=== PATIENT | female | born 1945 | race Asian ===

== ENCOUNTER 2019-03-28 12:45 | Inpatient (IN) | payer OTHER ==
[~2019-03-28] VITALS: Ht 160 cm; Wt 67.2 kg
[~2019-03-28 12:45] MED LIST: ALPR0.5O4 PO; ASPI-1718 PO; ATEN50TA8 PO; CHOL200072 PO; LISI-420 PO; MECL-272 PO; SIMV20TA1 PO; SIMV40TA1 PO
[2019-03-28 12:50] VITALS: BP 138/99
--- NOTE | 2019-03-28 12:57 | NUR ---
BS 106
--- NOTE | 2019-03-28 13:38 | NUR ---
PT STATES SHE ALREADY USED THE RESTROOM AND CANT GO RIGHT NOW CARI WESTBROOK TRANSLATED
--- NOTE | 2019-03-28 13:46 | NUR ---
PT AMB TO RESTROOM WITH STEADY GAIT
--- NOTE | 2019-03-28 13:59 | NUR ---
MICHELLE CORTEZ. PER EMS, PT HAS HAD MULTIPLE BEHAVIORAL INCIDENTS AT HOME. FAMILY HAS BEEN ATTEMPTING TO PLACE PT IN A HOME AND NEEDS MEDICAL CLEARANCE. PT CONTINUES TO WANDER FROM ROOM. VSS. PT AWAKE AND AMBULATORY. DR MINA HAS ALREADY SEEN PT. PMH- ALZHEIMERS AND DEMENTIA MANDARIAN SPEAKING ONLY
--- NOTE | 2019-03-28 14:10 | NUR ---
PT CONTINUES TO WANDER FROM ROOM, PT ESCORTED BACK INTO ROOM
[2019-03-28 14:28] LABS: BASOPHILS % (AUTO) 0.6 % (0.0-2.0); EOSINOPHILS # (AUTO) 0.1 K/uL (0-0.4); EOSINOPHILS % (AUTO) 2.5 % (0.0-4.0); HEMATOCRIT 36.2 % (36-48); HEMOGLOBIN 11.9 g/dL (12.0-16.0); LYMPHOCYTES % (AUTO) 39.4 % (20.5-51.1); MEAN CORPUSCULAR HEMOGLOBIN 31 pg (27-31); MEAN CORPUSCULAR HGB CONC 33 g/dL (33-37); MEAN CORPUSCULAR VOLUME 93.3 fL (80-94); MONOCYTES # (AUTO) 0.5 K/uL (0.8-1.0); MONOCYTES % (AUTO) 10.4 % (1.7-9.3); NEUTROPHILS # (AUTO) 2.4 K/uL (1.8-7.7); NEUTROPHILS % (AUTO) 47.1 % (42.2-75.2); PLATELET COUNT (AUTO) 288 K/uL (140-450); RED BLOOD CELL COUNT(AUTO) 3.88 MIL/uL (4.20-5.40); RED CELL DISTRIBUTION WIDTH 13.1 % (11.6-13.7); WHITE BLOOD COUNT (AUTO) 5.1 K/uL (4.8-10.8)
[2019-03-28] MEDS ORDERED: LORazepam 2 MG/ML VIAL IM ONE (14:30)
[2019-03-28 14:49] LABS: ALBUMIN 3.6 g/dL (3.4-5.0); ANION GAP 12.5 (8-16); ASPARTATE AMINOTRANSFERASE 29 U/L (15-37); CHLORIDE 103 mmol/L (98-107); CREATININE 0.8 mg/dL (0.6-1.3); GLUCOSE 96 mg/dL (74-106); POTASSIUM 3.5 mmol/L (3.5-5.1); SODIUM SERUM 139 mmol/L (136-145); TOTAL BILIRUBIN 0.7 mg/dL (0.0-1.0); UREA NITROGEN, BLOOD 15 mg/dL (7-18)
[2019-03-28 14:50] LABS: ACETAMINOPHEN < 0.5 ug/ml (10-30); SALICYLATE < 2.8 mg/dL (2.8-20.0)
[2019-03-28 14:51] LABS: BARBITURATE, URINE NEG. ng/ml (NEG <=200); BENZODIAZEPINE, URINE POS. ng/mL (NEG <=200); CANNABINOID, URINE NEG. ng/mL (NEG <=50); COCAINE, URINE NEG. ng/mL (NEG <=300); OPIATE, URINE NEG. ng/mL (NEG <=2000); PHENCYCLIDINE SCREEN,URINE NEG. ng/mL (NEG <=25)
[2019-03-28] MEDS ORDERED: diphenhydrAMINE 50 MG/ML VIAL IM ONE (15:05)
[2019-03-28] MEDS ORDERED: NACL 0.9% 1,000 ML IV ONE (15:05)
[2019-03-28] MEDS ORDERED: HALOPERIDOL IM 5 MG/ML VIAL IM ONE (15:05)
--- NOTE | 2019-03-28 15:32 | NUR ---
HALDOL, BENADRYL ADMINISTERED IM, WILL START IV AND ADMINISTER FLUIDS ONCE PT IS CALM
--- NOTE | 2019-03-28 15:50 | NUR ---
UNABLE TO INSERT IV. PT CONTINUES TO MOVE. WILL NOT HOLD ARM STILL
--- NOTE | 2019-03-28 15:57 | NUR ---
PT CONTINUES TO MOVE ARM DURING BP. BP NOT TAKEN DOCUMENTED PTS HR, RR, AND 02
--- NOTE | 2019-03-28 16:31 | NUR ---
IV INSERTED IN PTS L AC, NS STARTED 100 MLS/HR
[2019-03-28] MEDS ORDERED: LORazepam 2 MG/ML VIAL IVP PRN ×2 (16:50→17:00)
[2019-03-28] MEDS ORDERED: DOCUSATE SODIUM 250 MG GELCAP PO PRN (17:00)
[2019-03-28] MEDS ORDERED: BISACODYL 10 MG SUPP RC PRN (17:00)
[2019-03-28] MEDS ORDERED: ALUMINUM HYD/MAG/SIMETHICONE 30 ML UDC PO PRN (17:00)
[2019-03-28] MEDS ORDERED: HYDROcodone/APAP 5/325 MG 1 TAB TAB PO PRN ×2 (17:00)
[2019-03-28] MEDS ORDERED: MAG SULF 2000 MG/WATER PREMIX 50 ML IV PRN (17:00)
[2019-03-28] MEDS ORDERED: SODIUM PHOSPHATE 118 ML ENEM RC PRN (17:00)
[2019-03-28] MEDS ORDERED: MAGNESIUM OXIDE 400 MG TAB PO PRN (17:00)
[2019-03-28] MEDS ORDERED: IPRATROPIUM 0.02% 0.5 MG/2.5 ML NEBU INH PRN (17:00)
[2019-03-28] MEDS ORDERED: ALBUTEROL 0.083% 2.5 MG/3 ML NEBU INH PRN (17:00)
[2019-03-28] MEDS ORDERED: ONDANSETRON 4 MG/2 ML VIAL IVP PRN (17:00)
[2019-03-28] MEDS ORDERED: MORPHINE SULFATE 2 MG/ML SYR IVP PRN (17:00)
[2019-03-28] MEDS ORDERED: POTASSIUM CHLORIDE 10 MEQ TABER PO PRN (17:00)
[2019-03-28] MEDS ORDERED: diphenhydrAMINE 50 MG/ML VIAL IVP PRN (17:00)
[2019-03-28] MEDS ORDERED: cloNIDine 0.1 MG TAB PO PRN (17:00)
[2019-03-28] MEDS ORDERED: ACETAMINOPHEN 325 MG TAB PO PRN (17:00)
[2019-03-28] MEDS ORDERED: guaiFENesin DM 200/20 MG-10 ML 10 ML UDC PO PRN (17:00)
[2019-03-28] MEDS ORDERED: ACETAMINOPHEN 650 MG SUPP RC PRN (17:00)
--- NOTE | 2019-03-28 18:00 | NUR ---
PT BITING AT IV TUBING, IV TUBING REPLACED.
--- NOTE | 2019-03-28 18:14 | NUR ---
BP 169/104, DR MINA NOTIFIED
--- NOTE | 2019-03-28 18:15 | NUR ---
SOFT RESTRAINTS APPLIED TO UPPER WRISTS AND LOWER ANKLES
--- NOTE | 2019-03-28 18:30 | NUR ---
UNABLE TO ASSESS BP, PT CONTINUES TO MOVE ARM
--- NOTE | 2019-03-28 18:45 | NUR ---
Patient will be admitted to care of [facility]. Admited to [facility]. Will go to room 110B. Belongings list completed. Report to SHANTA RIZO. PT IN RESTAINTS UPON ADMIT NS RUNNING AT 100MLS/HR, APPROX 900 ML LEFT
--- NOTE | 2019-03-28 19:10 | NUR ---
RECEIVED REPORT FORM ERNESTO RIZO DAYSHIFT NURSE AT BEDSIDE. PT RECENTLY ARRIVED TO FLOOR VIA GURNEY AND WAS ABLE TO AMBULATE WITH ASSISTANCE TO BED B OF ROOM 110. PT IS AOX1 AND SPEAKS MANDARIN ONLY. PT FAMILY AT BEDSIDE AND ASSISTING WITH ADMISSION QUESTIONS. FAMILY SAID THEY REASON THEY HAVE HER HERE IS DUE TO HER DEMENTIA BEHAVIORS CAUSING PT TO LEAVE THE HOUSE AND REFUSE TO COME BACK HOME POLICE WAS CALLED AND PT ARRIVE BIBA TO KEEP PT SAFE AND FOR PT TO HAVE PLACEMENT IN APPROPRIATE FACILITY. MRSA SWAB DONE PT HAS RESTRAINTS AT BEDSIDE BUT PT IS QUIET WITH NO BEHAVIORS CURRENTLY. PT PLACED ON FALLS PRECAUTIONS AND HAS 1 :1 SITTER AT BEDSIDE.
[2019-03-28 19:15] VITALS: BP 178/89
--- NOTE | 2019-03-28 20:00 | NUR ---
PT IN BED SLEEPING BUT AROUSABLE TO NAME, PT SPEAKS ONLY MANDARIN BUT DOES UNDERSTAND SOME SINHALA. PT WAS ESCORTED TO THE TOILET. SHE IS CONTINENT AND ABLE TO LET STAFF KNOW SHE IS THIRSTY AND HAS TO USE TOILET. PT NOT IN RESTRAINTS ATT HIS TIME. V/S FOLLOWS T 97.6 P 60 R 18 B/P 152/88 02 95% ON ROOM AIR. PT HAS IV SITE 22G ON RIGHT F/A INTACT AND RUNNING N/S AT 100MLS/HR.
--- NOTE | 2019-03-28 20:06 | NUR ---
RECEIVED PATIENT ON ROOM AIR, PULSE OX SAT 95%. NO SOB NOTED. PRN BREATHING TREATMENT NOT INDICATED AT THIS TIME. NO ACUTE RESPIRATORY DISTRESS NOTED AT THIS TIME. WILL CONTINUE TO MONITOR.
--- NOTE | 2019-03-28 22:00 | NUR ---
PT AWAKE AND SPEAKING MANDARIN AT BEDSIDE. TO SITTER. PT TRYING TO GET PUT OF BED BY HERSELF, STAFF CAME AND ASSISTED PT TO TOILET AND GAVE HER A DRINK AND SNACK, PT WENT BACK TO BED. ALL FALLS PRECAUTIONS IN PLACE AND 1:1 SITTER AT BEDSIDE.
[2019-03-28] MEDS: MECLIZINE 25 MG TAB PO SCH (22:06)
[2019-03-28] MEDS: SIMVASTATIN 20 MG TAB PO SCH (22:07)
[2019-03-28] MEDS ORDERED: hydrALAZINE 20 MG/ML VIAL IVP PRN (22:15)
[2019-03-29] VITALS: BP 141/98
--- NOTE | 2019-03-29 | NUR ---
PT IN BED SLEEPING BUT AROUSABLE TO TOUCH. NO BEHAVIORS NOTED V/S FOLLOWS T 98.2 P 57 R 18 B/P 141/98 02 95% ON ROOM AIR. ALL FALLS PRECAUTIONS IN PLACE AND 1:1 SITTER AT BEDSIDE.
--- NOTE | 2019-03-29 02:40 | NUR ---
PT WAS ESCORTED TO THE TOILET AND GIVING A SNACK AND DRINK . PT CONTINUE TO YELL OUT IN MANDARIN AND SEEMED TO BE MORE AGITATED. PT PLACED ON RESTRAINTS AT BEDSIDE WITH ALL FALLS AND 1: 1 SITTER AT BEDSIDE.
--- NOTE | 2019-03-29 04:45 | NUR ---
PT YELLING AND CRYING AT BEDSIDE, ATIVAN NOT EFFECTIVE FOR PT AGITATION. PT GIVEN MORPHINE FOR 7/10 GENERALIZED PAIN. ALL FALLS PRECAUTIONS AND 1:1 SITTER AT BEDSIDE. IV SITE INTACT AND RUNNING NS ORDERED.
--- NOTE | 2019-03-29 07:30 | NUR ---
RECEIVED BEDSIDE REPORT FROM BOLTING MACHINE OPERATOR NURSE FOR CONTINUITY OF CARE. PATIENT IS AWAKE AND LAYING FLAT ON BED. PATIENT IS TALKING TO HERSELF IN [place]. RESPIRATION EVEN AND UNLABORED ON RA. NO SIGNS OF DISTRESS NOTED. PATIENT REFUSED TO ESTABLISH IV AND EDUCATION PROVIDED AND PATIENT INSISTED OF NOT WANTING IT AND SAID " NO, DON'T TOUCH ME" IN [place] R[place]. BILATERAL SOFT WRISTS RESTRAINTS IN PLACE, ASSESSED AND NO INJURY AND CAPILLARY REFILLED < 3 SECONDS. SKIN INTACT AND DRY. PATIENT IS CONTINENT AND ABLE TO AMBULATE WITH MINIMAL ASSIST. DISCUSSED PLAN OF CARE WITH PATIENT AND REINFORCEMENT NEEDED. SAFETY MEASURES IN PLACE. BED IN LOW POSITION AND CALL LIGHT WITHIN REACH. SITTER BY BEDSIDE.
--- NOTE | 2019-03-29 07:50 | NUR ---
DAUGHTER BERTA ROBLEDO BY BEDSIDE AND TALKING TO PATIENT. NO SIGNS OF DISTRESS NOTED. SAFETY MEASURES IN PLACE.
--- NOTE | 2019-03-29 07:52 | NUR ---
RELEASED PATIENT FROM RESTRAINTS, AND ASSESSED NO INJURY AND CAPILLARY REFILLED < 3 SECONDS. PATIENT SITS UP ON CHAIR BY THE DOOR AND KEEP ON SAYING IN KOREAN " MY OLDER SISTER IS IN UNIT 1 FLOOR 1. I NEED TO GO PICK HER UP." REORIENTED PATIENT THAT SHE IS IN THE HOSPITAL AND HER OLDER SISTER IS NOT AROUND HERE. PATIENT SAID "NO, I MUST GO NOW." NO SIGNS OF DISTRESS NOTED. SITTER IS WITH PATIENT.
[2019-03-29 08:00] VITALS: BP 155/104
--- NOTE | 2019-03-29 08:14 | NUR ---
PATIENT HAS BEEN SCREENED AND CATEGORIZED MODERATE NUTRITION RISK. PATIENT WILL BE SEEN WITHIN 3-5 DAYS OF ADMISSION. 03/31/19 04/02/[address]
[2019-03-29] MEDS: LISINOPRIL 20 MG TAB PO SCH (08:40)
[2019-03-29] MEDS: ATENOLOL 50 MG TAB PO SCH (08:41)
[2019-03-29] MEDS: ASPIRIN 81 MG TAB.CHEW PO SCH (08:41)
--- NOTE | 2019-03-29 08:41 | NUR ---
ADMINISTERED SCHEDULED MEDS PER MD ORDER, PATIENT TOLERATED WELL. MEDS EDUCATION PROVIDED TO PATIENT AND REINFORCEMENT NEEDED. ATTEMPTED TO ESTABLISH IV ACCESS, BUT PATIENT REFUSED AND PUSH MY HANDS AWAY AND SAID "NO, I DON'T NEED NEEDLE. DON'T TOUCH ME." EXPLAINED TO PATIENT THAT IV IS NEEDED DURING THE STAY IN THE HOSPITAL FOR EMERGENCY PURPOSE AND PATIENT INSISTED NOT WANTING IT. PATIENT IS SITTING UP ON CHAIR AND WEARING HER PURSE AND ATTEMPTED TO LEAVE HER ROOM TO TAKE THE TRAIN. REORIENTED PATIENT THAT SHE IS IN HOSPITAL AND NO TRAIN AROUND HERE. SITTER IS WITH PATIENT. NO SIGNS OF DISTRESS NOTED. SAFETY MEASURES IN PLACE.
--- NOTE | 2019-03-29 09:50 | NUR ---
PATIENT IS AWAKE AND SITTING ON CHAIR BY DOOR. PATIENT IS SAYING IN DUTCH"I NEED TO GO GET THE TRAIN NOW, THE [place]ED[place]ING IS LATE. LET ME GET OUT OF THE ROOM." REORIENTED PATIENT THAT SHE IS IN THE HOSPITAL AND I AM GOING TO START IV ON HER AND SHE REFUSED AND PUSHING MY HANDS AWAY. UNABLE TO START IV. NO SIGNS OF DISTRESS NOTED. SAFETY MEASURE IN PLACE. SITTER BY PATIENT' SIDE.
--- NOTE | 2019-03-29 11:10 | NUR ---
PATIENT INSISTED TO GET OUT OF HER ROOM AND FORCED HER WAY OUT DESPITE WITH SITTER. AMBULATED WITH PATIENT TO THE DAMIAN FOR 3 MINS. WAS ABLE TO CONVINCED PATIENT TO SIT DOWN ON WHEELCHAIR. ASSISTED PATIENT TO SIT DOWN ON WHEELCHAIR AND PUT ON SEAT BELT. WHEELCHAIR PATIENT BACK TO HER ROOM. PATIENT IS SITTING UP ON WHEELCHAIR AND SAYING "I NEED TO GO NOW. NO ONE IS TAKING CARE OF THE CHILDREN, THEY WILL BE HUNGRY. I NEED TO GO HOME TO PROJECT COORDINATOR RN." REORIENTED PATIENT THAT SHE IS IN THE HOSPITAL AND NOW IT'S MORNING. PATIENT IS SITTING ON WHEELCHAIR AND TALKING TO HERSELF. SAFETY MEASURES IN PLACE. SITTER BY PATIENT' SIDE.
--- NOTE | 2019-03-29 11:25 | NUR ---
INFORMED DR HOSKINS THAT PATIENT PULLED OUT HER IV AND REFUSED TO START A NEW IV ACCESS, DR HOSKINS WAS AWARE AND STATED "OK TO CHANGE ATIVAN TO PO 2 MG." REBACK AND CONFIRMED WITH DR HOSKINS. Addendum: 03/29/19 at 1138 by Kylee Piedra RN 0.5 MG PO Q4 FOR AGITATION
[2019-03-29] MEDS: LORazepam 0.5 MG TAB PO PRN ×2 (12:09→19:40)
--- NOTE | 2019-03-29 12:09 | NUR ---
PATIENT IS AGITATED AND PUSHING THE SITTER AND MANAGED TO GET OFF FROM WHEELCHAIR AND GET OUT OF HER ROOM. PATIENT STATED IN TAMAZIGHT "THE TRAIN IN HERE, I HEARD IT. I NEED TO GO HOME TO GREET THE GUESTS." REORIENTED PATIENT AND PATIENT INSISTED OF WALKING OUT. CONVINCED PATIENT TO GO BACK HER ROOM TO WAIT IN HER ROOM FOR LUNCH, ADMINISTERED ATIVAN PO PER MD ORDER, PATIENT SWALLOWED WELL. PATIENT IS SITTING DOWN ON THE CHAIR AT THIS TIME AND KEEP SAYING IN TAMAZIGHT " OK, OK, I AM BUSY AT HOME AND I NEED TO TAKE CARER OF MY BUSINESS." REORIENTED PATIENT THAT SHE IS IN THE HOSPITAL AND FOR HER SAFETY DO NOT GET OUT OF HER ROOM AND DO NOT WANDER AROUND BY HERSELF. SAFETY MEASURES IN PLACE. SITTER BY PATIENT' SIDE.
--- NOTE | 2019-03-29 13:40 | NUR ---
PATIENT IS AWAKE AND WANDERING AROUND IN HER ROOM AND FOLDING BLANKET. NO SIGNS OF DISTRESS NOTED. SAFETY MEASURES IN PLACE. SITTER BY BEDSIDE.
--- NOTE | 2019-03-29 14:27 | NUR ---
Type Proof Reproducer Note: José Cheng from [facility] , [address], [address] [place] [address] came to hospital to meet with patient and to obtain an update on patient's discharge plan. I informed him I have contacted [facility] facilities and told him patient's daughter Arlette is able to pay up to $1,100 for patient's placement if [facility] facility placement is not an option. Per José, patient's IHSS application was denied. He stated he will try to assist patient with completing another IHSS application.
--- NOTE | 2019-03-29 14:34 | NUR ---
LUIS MCGILL FROM [facility] CAME TO SEE THE PATIENT AND LEFT HIS CARD, PUT IT IN THE CHART.
--- NOTE | 2019-03-29 14:46 | NUR ---
Engineering Manager Note: Per Chrissy from [facility] , they cannot accept patient due to behavior and stated they do not have any beds available in their locked unit. Per Arpita from [facility] , they do not have any beds available in their locked unit at this time. Per Joey from [facility] , they do not have any beds available in their locked unit at this time. Per Lucy from [facility] , they do not have any female beds at this time. Pending response from Bhargavi at [facility]
--- NOTE | 2019-03-29 14:50 | NUR ---
PATIENT IS SLEEPY AND TALK WITH HER EYES CLOSED. ASKED PATIENT TO TAKE NAP ON BED AND PATIENT REFUSED. PATIENT IS WANDERING AROUND IN THE ROOM AND TURN ON THE WATER FACET. ORIENTED PATIENT AND ASKED PATIENT TO SIT DOWN TO REST ON THE CHAIR. PATIENT SIT ON THE CHAIR WITH HER EYES CLOSED AND SAYING"I NEED TO START COOKING NOW. THE CHILDREN ARE GOING TO [place]" REORIENTED PATIENT THAT SHE IS IN THE HOSPITAL AND THERE IS NO CHILD AROUND. NO SIGNS OF DISTRESS NOTED. SAFETY MEASURES IN PLACE. 1:1 SITTER BY PATIENT'S SIDE.
--- NOTE | 2019-03-29 15:18 | NUR ---
CONTACTED PATIENT'S PCP MELCHOR GARCIA'S OFFICE AT [phone] REGARDING POST DISCHARGE VISIT. APPOINTMENT SCHEDULED FOR [phone]. COPY OF APPOINTMENT PROVIDED TO THE PATIENT.
--- NOTE | 2019-03-29 15:21 | NUR ---
ASSISTED PATIENT TO GET ON BED AND TAKE NAP. NO SIGNS OF DISTRESS NOTED. SAFETY MEASURES IN PLACE. BED IN LOW POSITION AND CALL LIGHT WITHIN REACH. SITTER BY BEDSIDE.
[2019-03-29 16:00] VITALS: BP 147/91
--- NOTE | 2019-03-29 16:43 | NUR ---
Disaster Recovery Consultant Note: Per Faheem from [facility] , they do not have any beds available in their locked unit at this time. Addendum: 03/29/19 at 1645 by Nancie LOOMIS Carri john MD's snf order to [facility], fax number Addendum: 03/29/19 at 1649 by Nancie LOOMIS Per Tanya from [facility] , they do not have any beds available at this time.
--- NOTE | 2019-03-29 16:45 | NUR ---
PATIENT AWAKE AND WANDERING AROUND HIS THE ROOM AND STATES IN HONG KONGER "OH, I AM SLEEPY. I HAD A NIGHTMARE LAST NIGHT. I WILL GO TO BED EARLY." ASSISTED PATIENT TO GET ON BED FOR REST, PATIENT REFUSED AND INSISTED TO SIT DOWN ON CHAIR BY THE DOOR. PATIENT IS SITTING DOWN ON THE CHAIR AND TALKING IN [place]. NO SIGNS OF DISTRESS NOTED. SAFETY MEASURES IN PLACE. SITTER BY PATIENT' SIDE.
--- NOTE | 2019-03-29 17:26 | NUR ---
PATIENT IS SLEEPING COMFORTABLY ON BED AT THIS TIME. EVEN AND UNLABORED CHEST RISES ON RA NOTED. FLACC 0. NO SIGNS OF DISTRESS NOTED. SAFETY MEASURES IN PLACE. BED IN LOW POSITION AND CALL LIGHT WITHIN REACH. SITTER BY BEDSIDE.
--- NOTE | 2019-03-29 17:42 | NUR ---
PATIENT AWAKE ANG GOT OUT OF YAMIL. PATIENT IS SITTING UP ON A CHAIR BY THE DOOR. PATIENT IS TALKING IN LATVIAN. NO SIGNS OF DISTRESS NOTED. SAFETY MEASURES IN PLACE. SITTER BY PATIENT' SIDE.
--- NOTE | 2019-03-29 18:50 | NUR ---
PATIENT AWAKE AND SITTING ON EDGE OF BED. NO SIGNS OF DISTRESS NOTED. SAFETY MEASURES IN PLACE. SITTER BY BEDSIDE.
--- NOTE | 2019-03-29 19:15 | NUR ---
PATIENT MANAGED TO WALK OUT OF HER DESPITE SITTER BY BEDSIDE. PATIENT WAS SAYING IN ARMENIAN "I AM GOING TO DIGITAL PUBLISHING SPECIALIST MY MOTHER FROM THE HOSPITAL. DON'T STOP ME." REORIENTED PATIENT AND WAS ABLE TO CONVINCED PATIENT TO SIT ON WHEELCHAIR. APPLIED SEAT BELT AND WHEELCHAIRED PATIENT BACK TO HER ROOM. NO SIGNS OF DISTRESS NOTED. SAFETY MEASURES IN PLACE. SITTER BY PATIENT' SIDE.
--- NOTE | 2019-03-29 19:24 | NUR ---
ENDORSED PATIENT AT BEDSIDE TO COPY READER NURSE FOR CONTINUITY OF CARE. PATIENT AWAKE AND SITTING ON THE WHEELCHAIR. PATIENT IS TALKING IN ROMANIAN "I NEED TO GO HOME TO TAKE CARE OF MY FATHER. HE IS 80 YEARS OLD." REORIENTED PATIENT THAT SHE IS IN THE HOSPITAL. NO SIGNS OF DISTRESS NOTED. PATIENT IS IN STABLE CONDITION. SAFETY MEASURES IN PLACE. SITTER BY PATIENT' SIDE.
--- NOTE | 2019-03-29 19:25 | NUR ---
REPORT RECEIVED FROM AM NURSE AT BEDSIDE. PT IN STABLE CONDITION. AAOX1. INTRODUCED SELF TO PT. BOARD UPDATED. NO COMPLAINTS OF PAIN. NO SOB. AFEBRILE. PT IS AMBULATORY. PT HAS DEMENTIA AND IS VERY CONFUSED. PT IS NON COMPLIANT AND WALKS AROUND THE UNIT. PT NO LONGER HAS AN IV SITE. SHE PULLED IT OUT DURING AM SHIFT. SKIN WARM, DRY, AND INTACT WITH NO OPEN WOUNDS. BED LOCKED IN LOW POSITION. CALL QUINTERO WITHIN REACH. SAFETY PRECAUTION IN PLACE. ALL NEEDS MET AT THIS TIME.
--- NOTE | 2019-03-29 19:40 | NUR ---
ATIVAN GIVEN PO. PT TOLERATED WELL.
[2019-03-29] MEDS: SIMVASTATIN 20 MG TAB PO SCH (20:01)
[2019-03-29] MEDS: MECLIZINE 25 MG TAB PO SCH (20:01)
--- NOTE | 2019-03-29 20:01 | NUR ---
ANTIVERT AND ZOCOR GIVEN PO. PT TOLERATED WELL.
--- NOTE | 2019-03-29 20:30 | NUR ---
PT NON COMPLIANT WALKING AROUND THE UNIT. PT DOES NOT LISTEN WHEN ASKED TO GO BACK TO HER ROOM OR GO TO BED AFTER ATIVAN HAS BEEN GIVEN. PT IS A FALL RISK. WILL PUT PATIENT ON WHEELCHAIR AND WHEEL HER AROUND.
--- NOTE | 2019-03-29 20:57 | NUR ---
RECEIVED PATIENT ON ROOM AIR, PULSE OX SAT 94%. NO SOB NOTED. PRN BREATHING TREATMENT NOT INDICATED AT THIS TIME. NO ACUTE RESPIRATORY DISTRESS NOTED. WILL CONTINUE TO MONITOR.
--- NOTE | 2019-03-29 21:00 | NUR ---
PT CONSTANTLY GETTING UP AND WILL NOT SLEEP. WALKING AROUND THE UNIT.
--- NOTE | 2019-03-29 21:30 | NUR ---
PT STILL UP AND ALERT. TRYING TO GET HER TO SLEEP DUE TO PATIENT GETTING DROWSY.
--- NOTE | 2019-03-29 21:55 | NUR ---
PT FINALLY LAYING IN BED. NO S/S OF DISTRESS NOTED. WILL CONTINUE TO MONITOR.
--- NOTE | 2019-03-29 23:30 | NUR ---
PT SLEEPING COMFORTABLY BUT AROUSABLE. NO S/S OF DISTRESS NOTED. WILL CONTINUE TO MONITOR.
[2019-03-30] VITALS: BP 146/109
--- NOTE | 2019-03-30 02:00 | NUR ---
PT SLEEPING COMFORTABLY BUT AROUSABLE. NO S/S OF DISTRESS NOTED. RESPIRATIONS EVEN, UNLABORED, AND WNL. WILL CONTINUE TO MONITOR.
--- NOTE | 2019-03-30 03:25 | NUR ---
PT SLEEPING COMFORTABLY BUT AROUSABLE. NO S/S OF DISTRESS NOTED. WILL CONTINUE TO MONITOR.
--- NOTE | 2019-03-30 07:15 | NUR ---
RECEIVED BEDSIDE REPORT FROM CIRCUIT DESIGN ENGINEER NURSE FOR CONTINUITY OF CARE. PATIENT IS SLEEPING COMFORTABLY ON BED AT THIS TIME AND AROUSABLE TO VOICE. RESPIRATION EVEN AND UNLABORED ON RA. FLACC 0. NO SIGNS OF DISTRESS NOTED. NO IV SITE ESTABLISHED. SKIN INTACT AND DRY. PATIENT IS CONTINENT AND ABLE TO AMBULATE WITH STANDBY ASSIST. SAFETY MEASURES IN PLACE. BED IN LOW POSITION AND CALL LIGHT WITHIN REACH. SITTER BY BEDSIDE.
[2019-03-30 08:00] VITALS: BP 170/111
[2019-03-30] MEDS: ATENOLOL 50 MG TAB PO SCH (08:13)
[2019-03-30] MEDS: ASPIRIN 81 MG TAB.CHEW PO SCH (08:13)
--- NOTE | 2019-03-30 08:13 | NUR ---
CHECKED VITAL SIGNS AND PATIENT'S BP IS 170/111, ADMINISTERED AM BP MEDS PER MD ORDER, PATIENT TOLERATED WELL. MED EDUCATION PROVIDED TO PATIENT AND REINFORCEMENT NEEDED. PATIENT AWAKE AND SITTING UP ON EDGE OF BED AT THIS TIME. PATIENT IS TALKING IN CITIZEN OF [place] "I NEED TO COOK FOR THE CHILDREN FOR DINNER. I AM GOING TO TAKE THE TRAIN HOME." REORINTED PATIENT THAT SHE IS IN THE HOSPITAL AND NO TRAIN AROUND HER. NO SIGNS OF DISTRESS NOTED. SAFETY MEASURES IN PLACE. BED IN LOW POSITION AND CALL LIGHT WITHIN REACH. SITTER BY BEDSIDE.
[2019-03-30] MEDS: LISINOPRIL 20 MG TAB PO SCH (08:14)
--- NOTE | 2019-03-30 09:29 | NUR ---
RECHECK PATIENT'S BP AND RECEIVED 147/80 PULSE 68. PATIENT IS AWAKE AND RESTING ON BED AT THIS TIME. NO SIGNS OF DISTRESS NOTED. SAFETY MEASURES IN PLACE. BED IN LOW POSITION AND CALL LIGHT WITHIN REACH. SITTER BY BEDSIDE.
[2019-03-30] MEDS ORDERED: amLODIPine 5 MG TAB PO SCH (10:00)
--- NOTE | 2019-03-30 10:15 | NUR ---
ADMINISTERED MED PER MD ORDER, PATIENT TOLERATED WELL. PATIENT AWAKE AND SITTING UP ON CHAIR. NO SIGNS OF DISTRESS NOTED. SAFETY MEASURES IN PLACE. SITTER BY BEDSIDE.
--- NOTE | 2019-03-30 10:48 | NUR ---
PATIENT REFUSED TO SIT DOWN INSIDE OF HER ROOM AND REQUESTED TO SIT DOWN ON THE HALLWAY. MOVED THE CHAIR FROM THE PATIENT AND ASSISTED PATIENT TO SIT DOWN ON THE CHAIR BY THE HALLWAY. PATIENT PUT ON HER SUNGLASSES AND SIT DOWN ON THE CHAIR. NO SIGNS OF DISTRESS NOTED. SAFETY MEASURES IN PLACE. SITTER BY PATIENT' SIDE.
--- NOTE | 2019-03-30 11:47 | NUR ---
PATIENT AWAKE AND SITTING UP ON CHAIR BY HER ROOM IN THE DAMIAN WAY. NO SIGNS OF DISTRESS NOTED. SAFETY MEASURES IN PLACE. SITTER BY BEDSIDE.
--- NOTE | 2019-03-30 13:15 | NUR ---
PATIENT IS AWAKE AND SITTING UP ON CHAIR ON THE DAMIAN WAY. PATIENT REFUSED TO START IV AND SAYING IN GREENLANDIC "I AM NOT SICK. I DON'T NEED NEEDLE." EXPLAINED TO PATIENT THAT IV IS NEEDED DURING HER STAY IN THE HOSPITAL FOR EMERGENCY, PATIENT INSISTED NOT WANTING IT. PATIENT IS TALKING TO HERSELF IN GREENLANDIC. NO SIGNS OF DISTRESS NOTED. SAFETY MEASURES IN PLACE. SITTER BY PATIENT' SIDE.
--- NOTE | 2019-03-30 14:16 | NUR ---
PATIENT REFUSED TO GO BACK TO HER ROOM AND SITTING UP ON CHAIR BY THE DAMIAN WAY. PATIENT IS TALKING TO HERSELF IN MALIAN. NO SIGNS OF DISTRESS NOTED. SAFETY MEASURES IN PLACE. SITTER BY PATIENT' SIDE.
--- NOTE | 2019-03-30 15:50 | NUR ---
PATIENT AWAKE AND SITTING UP ON CHAIR BY THE HALLWAY. 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 NO SIGNS OF DISTRESS NOTED. SAFETY MEASURES IN PLACE. SITTER BY PATIENT' SIDE.
[2019-03-30 16:00] VITALS: BP 143/98
--- NOTE | 2019-03-30 16:01 | NUR ---
Stop Attacher Note: Sharif Mendez from [facility] , they do not have a locked unit. Addendum: 03/30/19 at 1605 by Nancie LOOMIS Sharif Fischer from [facility] , they do not have a locked unit.
--- NOTE | 2019-03-30 16:21 | NUR ---
CALLED [facility] SPOKE WITH JACK DISCHARGE PLAN [phone] NOTIFIED HER THAT ALL THE LOCKED FACILITY WE TRIED HAS NO BEDS . JACK STATED SHE WILL PRESENT THE CASE WITH HER DIFFICULT PLACEMENT TEAM TOMORROW. CM TO FOLLOW.
[2019-03-30] MEDS: LORazepam 0.5 MG TAB PO PRN ×2 (16:49→21:04)
--- NOTE | 2019-03-30 16:49 | NUR ---
PATIENT IS AGITATED AND REFUSED TO SIT DOWN AND WANDERING AROUND THE DAMIAN. PATIENT IS YELLING IN THAI "THE TRAIN IS HERE! I AM LATE TO GO TO SCHOOL." ORIENTED PATIENT THAT SHE IS IN THE HOSPITAL AND THERE IS NO TRAIN. PATIENT WAS MAD AND KEEP ON PUSHING ME AWAY. WITH ASSIST FROM SOFTWARE QUALITY MANAGER, CONVINCED PATIENT TO SIT ON WHEELCHAIR AND BROUGHT PATIENT BACK TO HER ROOM. ADMINISTERED PRN ATIVAN PO PER MD ORDER, PATIENT TOLERATED WELL. PATIENT REFUSED TO SIT INSIDE OF HER ROOM AND INSISTED TO SIT AT THE DAMIAN WAY. ASSISTED PATIENT TO SIT DOWN ON CHAIR BY HER ROOM NEAR THE DAMIAN WAY. PATIENT IS TALKING TO HERSELF IN THAI. NO SIGNS OF DISTRESS NOTED. SAFETY MEASURES IN PLACE. SITTER BY PATIENT' SIDE.
--- NOTE | 2019-03-30 17:32 | NUR ---
PATIENT IS SITTING UP ON THE CHAIR BY THE HALLWAY AND SEARCHING THROUGH HER PURSE. PATIENT IS TALKING TO HERSELF IN PERSIAN. NO SIGNS OF DISTRESS NOTED. SAFETY MEASURES IN PLACE. SITTER BY PATIENT' SIDE.
--- NOTE | 2019-03-30 18:17 | NUR ---
PATIENT AWAKE AND SITTING UP ON CHAIR BY HALLWAY. PATIENT REFUSED TO GO INSIDE HER ROOM AND STATED "MY SISTER IS IN FLOOR 1. I AM GOING TO PICK HER UP." ORIENTED PATIENT THAT SHE IS IN THE HOSPITAL AND HER SISTER IS NOT IN THE HOSPITAL. PATIENT IS KEEP TALKING IN PORTUGUESE. NO SIGNS OF DISTRESS NOTED. SAFETY MEASURES IN PLACE. SITTER BY PATIENT' SIDE.
--- NOTE | 2019-03-30 19:05 | NUR ---
ENDORSED PATIENT TO NIGHT CUSTODIAN NURSE FOR CONTINUITY OF CARE. PATIENT IS SITTING UP ON CHAIR BY HER ROOM IN THE HALLWAY. PATIENT REFUSED TO GO IN HER ROOM. PATIENT IS TALKING TO HERSELF IN GREEK AND LOOKING THROUGH HER PURSE. NO SIGNS OF DISTRESS NOTED. SAFETY MEASURES IN PLACE. SITTER BY PATIENT' SIDE.
--- NOTE | 2019-03-30 19:06 | NUR ---
RECD. SITTING ON CHAIR BUSY WITH HER PURSE, A/OX1, CONFUSED. RESPIRATION EVEN AND UNLABORED. NO IV LINE PER REPORT, PATIENT IS REFUSING. REORIENTED TO HOSPITAL SETTING. SAFETY MEASURES ENFORCED. WILL CONTINUE TO MONITOR PATIENT BEHAVIOR AND ENSURE SAFETY FOR THIS SHIFT WITH HELP OF 1:1 SITTER NEAR DOOR. NO APPEARANCE OF PAIN NOTED, FLACC - 0.
--- NOTE | 2019-03-30 20:00 | NUR ---
Patient's Plan of Care was discussed and reviewed with DIRECTOR OF ONCOLOGY: JAYCEE MONACO
--- NOTE | 2019-03-30 20:30 | NUR ---
DAUGHTER CAME TO VISIT. PATIENT IS HAPPY AND JUST STAY IN HER CHAIR.
--- NOTE | 2019-03-30 21:00 | NUR ---
DAUGHTER LEFT, PATIENT STARTED TO BE RESTLESS, CRYING.
[2019-03-30] MEDS: MECLIZINE 25 MG TAB PO SCH (21:03)
[2019-03-30] MEDS: DIVALPROEX SPRINKLES 125 MG CAPDR PO SCH (21:04)
[2019-03-30] MEDS: SIMVASTATIN 20 MG TAB PO SCH (21:04)
[2019-03-30] MEDS: ZOLPIDEM 5 MG TAB PO PRN (21:05)
--- NOTE | 2019-03-30 21:05 | NUR ---
AGITATED AND WANTS TO WANDER AROUND THE HOSPITAL. ATIVAN 0.5 MG. PO GIVEN WITH DUE PO MEDICATIONS FOR THE NIGHT. ABLE TO PERSUADE TO TAKE ALL MEDICATIONS BUT DOES NOT WANT TO RETURNED TO BED. 1:1 SITTER KEEP ON MONITORING PATIENT.
--- NOTE | 2019-03-30 22:00 | NUR ---
ASSISTED TO BED TO SLEEP BY TWO TEARER.
--- NOTE | 2019-03-30 22:30 | NUR ---
SLEEPING COMFORTABLY IN BED.
--- NOTE | 2019-03-30 23:00 | NUR ---
WENT OUT OF BED, ASSISTED BY RN TO GO TO BR TO VOID. PERSUADED TO GO BACK TO BED.
[2019-03-31] VITALS: BP 145/123
--- NOTE | 2019-03-31 00:30 | NUR ---
SLEEPING COMFORTABLY IN BED.
--- NOTE | 2019-03-31 02:30 | NUR ---
IN BED, NO DISTRESS NOTED.
--- NOTE | 2019-03-31 05:00 | NUR ---
AWAKE, PUT ON PANTS AND RUBBER SHOES. WANTS TO GO OUT OF ROOM AND AMBULATE IN THE HALLWAY.
--- NOTE | 2019-03-31 05:15 | NUR ---
WENT TO TO VOID. WASH HANDS AND FACE AND REQUESTED FOR TOOTHBRUSH AND TOOTHPASTE AND BRUSH HER TEETH.
--- NOTE | 2019-03-31 06:35 | NUR ---
CONDITION REMAIN STABLE. DID NOT GO BACK TO BED TO SLEEP AGAIN BUT JUST WANDERS INSIDE THE ROOM. NEW 1:1 SITTER MONITORING PATIENT. WILL ENDORSE TO AM SHIFT NURSE FOR CONTINUITY OF CARE.
--- NOTE | 2019-03-31 07:20 | NUR ---
RECEIVED PT FROM DERMATOLOGY PHYSICIAN NURSEJAYCEE, PT IS AWAKE AND SEATED ON THE CHAIR NEAR THE DOOR, SITTER BESIDE PT, NO IV LINE AND PT IS CALM, NO SIGN OF DISTRESS NOTED AND SAFETY PRECAUTION ENFORCED. WILL MONITOR PT.
[2019-03-31 08:00] VITALS: BP 145/91
[2019-03-31] MEDS ORDERED: amLODIPine 5 MG TAB PO SCH (09:00)
[2019-03-31] MEDS: ASPIRIN 81 MG TAB.CHEW PO SCH (09:15)
[2019-03-31] MEDS: DIVALPROEX SPRINKLES 125 MG CAPDR PO SCH ×3 (09:15→16:49)
[2019-03-31] MEDS: LISINOPRIL 20 MG TAB PO SCH (09:15)
[2019-03-31] MEDS: ATENOLOL 50 MG TAB PO SCH (09:16)
[2019-03-31] MEDS: MEMANTINE 10 MG TAB PO SCH (09:16)
--- NOTE | 2019-03-31 09:17 | NUR ---
PT IS AWAKE AND CALM NOW, BP IS 143/97, PULSE IS 82 MANUALLY, ORAL MEDICATIONS WERE GIVEN AND PT TOLERATED IT. WILL MONITOR PT.
--- NOTE | 2019-03-31 11:40 | NUR ---
PT IS SEATED ON THE CHAIR NEAR THE DOOR, SITTER BESIDE HER, PT IS CALM AND FIXING HER THINGS IN THE PURSE.
--- NOTE | 2019-03-31 13:35 | NUR ---
PT IS AWAKE AND 1:1 SITTER BESIDE PT, ORAL MEDICATION WAS GIVEN AND TOLERATED IT. WILL MONITOR PT.
--- NOTE | 2019-03-31 14:38 | NUR ---
Geoscientist Note: Per Shamika from [facility] , they do not have any beds available at this time.
[2019-03-31] MEDS: LORazepam 0.5 MG TAB PO PRN ×2 (14:42→21:33)
--- NOTE | 2019-03-31 14:42 | NUR ---
PT IS AGITATED AND ANXIUOUS NOW, ORAL MEDICATION WAS GIVEN. WILL MONITOR PT.
--- NOTE | 2019-03-31 15:02 | NUR ---
PT WAS NOTED TO HAVE $31 ON HER PURSE, SITTER INFORMED AND BESIDE PT.
[2019-03-31 16:00] VITALS: BP 127/91
--- NOTE | 2019-03-31 16:00 | NUR ---
Television News Anchor Note: I called and spoke with train planner Elvie from [facility]. I explained to her patient would benefit from locked unit at [facility]. I told her patient has an open case with [facility]PS. Per Elvie, the following snfs can be contacted: I called Harish Stevenson multiple times, no answer, no answering machine. [facility] , fax . I faxed inquiry. Per Omaira from [facility] , they do not have any beds at this time. She stated I can fax inquiry . I faxed inquiry. I called and spoke with Rosie from [facility] , she stated she will tell their entry level project coordinator Rosie to call me. [facility] Addendum: 03/31/19 at 1641 by Nancie Zeng I called and spoke with Amaya from [facility] , she stated monthly cost of board and care is at least $3,000. I told her patient's daughter Arlette is able to pay up to $1,100. I asked her if she would like to contact Arlette and discuss cost of board and care. She stated she will contact Arlette. I provided her with Arlette's phone number. Amaya called me back she stated Arlette will tour her facility tomorrow. Addendum: 03/31/19 at 1643 by Nancie LOOMIS Per Nadya from [facility] , no beds available at this time. Addendum: 03/31/19 at 1649 by Nancie LOOMIS Sharif Mac from [facility] , their admission coordinator is currently not available, she will give message to admission coordinator to call me back. Per Estefania, she does not know if they have female beds available. Addendum: 03/31/19 at 1654 by Nancie LOOMIS Estefania from [facility] requested inquiry to be faxed . I faxed inquiry. Addendum: 03/31/19 at 1658 by Nancie LOOMIS I called and spoke with Jazmin at [facility] , she requested inquiry to be faxed to her, fax . I faxed inquiry. She requested I contact her tomorrow. Addendum: 04/01/19 at 1127 by Nancie Zeng SS correction for yesterday's note 03/31/19 : I called and spoke with Toña from [facility] , she stated she will tell their entry level project coordinator Rosie to call me.
--- NOTE | 2019-03-31 19:13 | NUR ---
ENDORSED PT TO SUPERVISOR BIT AND SHANK DEPARTMENT NURSEERNA FOR CONTINUITY OF CARE.
--- NOTE | 2019-03-31 19:15 | NUR ---
RECEIVED PT SITTING ON CHAIR OUTSIDE THE ROOM, PT MANDARIN SPEAKING,CONFUSED WITH HX OF DEMENTIA, NO IV LINE AT THIS TIME, PER REPORT PT REFUSED IV INSERTION, SITTER IN PLACE FOR SAFETY.
[2019-03-31] MEDS: ZOLPIDEM 5 MG TAB PO PRN (20:12)
[2019-03-31] MEDS: SIMVASTATIN 20 MG TAB PO SCH (20:12)
[2019-03-31] MEDS: MECLIZINE 25 MG TAB PO SCH (20:13)
--- NOTE | 2019-03-31 20:20 | NUR ---
DUE MEDICATION ADMINISTERED, PT COMPLIANT, ALL NEEDS ATTENDED.
--- NOTE | 2019-03-31 21:35 | NUR ---
PT STILL AWAKE SOMETIMES AMBULATING ON THE HALLWAY AND GOING INSIDE OTHER PT'S ROOM, ATIVAN PO GIVEN PRN, REDIRECTED TO GO BACK TO BED BUT PREFERS TO SIT OUTSIDE THE ROOM BY THE HALLWAY, SITTER IN PLACE, ATIVAN PO GIVEN PRN, MONITORED CLOSELY.
[2019-04-01] VITALS: BP 150/101
[2019-04-01] MEDS ORDERED: LORazepam 2 MG/ML VIAL IM/IVP SCH (00:15)
--- NOTE | 2019-04-01 00:25 | NUR ---
PT STILL RESTLESS, WANDERING AROUND THE UNIT AND GOING TO OTHER PT'S ROOM, PAGED DR [address] WITH NEW ORDER, ATIVAN 1MG IM GIVEN A ONE TIME DOSE, SITTER WITH PT WHILE PT IS STILL AWAKE, MONITORED CLOSELY.
--- NOTE | 2019-04-01 01:10 | NUR ---
PT IN BED SLEEPING, NO RESP DISTRESS NOTED, CLOSELY MONITORED AT THE BEDSIDE, SIDE RAILS UP X3 AND BED ALARM ON.
--- NOTE | 2019-04-01 04:20 | NUR ---
ROUNDS MADE, SEEN PT SNORING, NO RESP DISTRESS NOTED, SIDE RAILS UP AND BED ALARM ON, SITTER IN PLACE.
--- NOTE | 2019-04-01 07:18 | NUR ---
03/31/2019 2000:REVIEWED AND CONTINUE WITH CURRENT PLAN OF CARE.MNURERG
--- NOTE | 2019-04-01 07:19 | NUR ---
RECEIVED ENDORSEMENT FROM COMPUTER GAME DESIGNER NURSE. PATIENT IS ALERT, MANDARIN SPEAKING. RESPIRATIONS ARE EVEN AND UNLABORED ON ROOM AIR. FLACC 0. NO IV LINE, PATIENT REFUSED. PLAN OF CARE WAS REVIEWED WITH PATIENT, PATIENT UNABLE TO VERBALIZE UNDERSTANDING. SAFETY MEASURES IN PLACE, SITTER AT BEDSIDE.
[2019-04-01 08:00] VITALS: BP 155/93
[2019-04-01] MEDS: MEMANTINE 10 MG TAB PO SCH (09:00)
[2019-04-01] MEDS ORDERED: amLODIPine 5 MG TAB PO SCH (09:00)
[2019-04-01] MEDS: DIVALPROEX SPRINKLES 125 MG CAPDR PO SCH ×3 (09:01→16:56)
[2019-04-01] MEDS: ATENOLOL 50 MG TAB PO SCH (09:01)
[2019-04-01] MEDS: LISINOPRIL 20 MG TAB PO SCH (09:01)
[2019-04-01] MEDS: ASPIRIN 81 MG TAB.CHEW PO SCH (09:02)
--- NOTE | 2019-04-01 09:02 | NUR ---
ADMINISTERED SCHEDULED MEDICATIONS. PATIENT TOLERATED WELL. NO OTHER NEEDS AT THIS TIME.
--- NOTE | 2019-04-01 11:05 | NUR ---
PATIENT SITTING OUTSIDE IN HALLWAY, WITH SITTER NEXT TO HER. FLACC 0. NO OTHER NEEDS AT THIS TIME.
--- NOTE | 2019-04-01 12:33 | NUR ---
ADMINISTERED SCHEDULED MEDICATION. PATIENT TOLERATED WELL. NO OTHER NEEDS AT THIS TIME.
--- NOTE | 2019-04-01 12:54 | NUR ---
Jewel Stripper Note: Per Jazmin at [facility] , they cannot accept patient due to language barrier and behavior. Per Aliza from [facility] , they do not have a locked unit. Pending response from Berenice from [facility] , fax number Addendum: 04/01/19 at 1305 by Nancie LOOMIS Per Ngozi from [facility] , they do not have a locked unit.
--- NOTE | 2019-04-01 13:05 | NUR ---
PATIENT IN WHEELCHAIR, WHEELED AROUND UNIT BY STUDENT. PATIENT IS CALM. FLACC 0. NO OTHER NEEDS AT THIS TIME.
--- NOTE | 2019-04-01 13:10 | NUR ---
Logistics Administrator Note: I called and spoke with patient's daughter Arlette Sanders . She stated she spoke with Amaya from [facility] she has agreed to pay monthly cost of board and care. She reported she is agreeable with taking patient to board and care upon discharge. I explained to Arlette at this time there is no accepting snf. I called and spoke with Amaya from [facility] , she stated she spoke with patient's daughter Arlette and was able to obtain information about patient's behavior. She stated Arlette agreed to pay for board and care placement. Amaya reported she able to accept patient today. Per Amaya, she is aware patient wanders and reported she has 24 hour care at her board and [facility]. She provided me with [facility] and [facility]'s address [address] [place] [address].
[2019-04-01] MEDS ORDERED: AMLO5TAB PO (13:40)
[2019-04-01] MEDS ORDERED: LORA-476 PO (13:40)
[2019-04-01] MEDS ORDERED: MEMA5TAB PO (13:40)
--- NOTE | 2019-04-01 13:47 | NUR ---
Dean For Student Affairs Note: I called and spoke with patient's daughter Arlette Sanders . She stated she is going to roller picker patient today before 8pm and take her to [facility] , [address] [place] [address]. Charge Nurse Lena made aware of above information. Addendum: 04/01/19 at 1359 by Nancie Zeng SS I called and spoke with José Cheng from [facility] , I informed him patient's daughter Arlette will roller picker patient today and take her to board and care.
--- NOTE | 2019-04-01 14:27 | NUR ---
04/01/19 RD INITIAL ASSESSMENT COMPLETED PLEASE REFER TO NUTRITION ASSESSMENT UNDER CARE ACTIVITY FOR ESTIMATED NUTRITIONAL NEEDS. 1. CONTINUE CARDIAC DIET TOLERATED 2. RD TO FOLLOW-UP 5-7 DAYS, LOW RISK DALIA LAIRD RD
--- NOTE | 2019-04-01 15:56 | NUR ---
PATIENT SITTING QUIETLY IN HALLWAY. FLACC 0. NO OTHER NEEDS AT THIS TIME.
[2019-04-01 16:00] VITALS: BP 143/100
[2019-04-01] MEDS: LORazepam 0.5 MG TAB PO PRN (16:56)
--- NOTE | 2019-04-01 17:10 | NUR ---
ADMINISTERED SCHEDULED MEDICATIONS AND ATIVAN PRN FOR AGITATION. PATIENT TOLERATED WELL, NO OTHER NEEDS AT THIS TIME.
--- NOTE | 2019-04-01 18:29 | NUR ---
GAVE DISCHARGE INFORMATION TO DAUGHTER. DAUGHTER SAID PT WILL BE BROUGHT HOME FOR NOW AND WILL BE SENT TO BOARD AND CARE AT THURSDAY. PT LEFT THE UNIT ON WHEELCHAIR WITH DAUGHTER.
--- NOTE | 2019-04-01 19:15 | NUR ---
RECEIVED REPORT FROM AM NURSE. PT AT WHEELCHAIR, ALERT, ORIENTED X2, COOPERATIVE, PERRLA 3MM, BRISK, HEART RATE REGULAR, S1S2 PRESENT, CAP REFILL <3S, PULSES 2+ BILATERAL UPPER AND LOWER EXTREMITIES, LUNG SOUNDS CLEAR THROUGHOUT, PT ON ROOM AIR, ABDOMEN, SOFT, ROUND, NONDISTENDED, NONTENDER, BLADDER SOFT, ROUND, NONDISTENDED NONTENDER, PT HAS GENERALIZED WEAKNESS. SKIN INTACT, WARM, DRY.
--- NOTE | 2019-04-01 19:23 | NUR ---
ENDORSED TO PUTTY MIXER AND APPLIER NURSE FOR CONTINUITY OF CARE. PATIENT IS STABLE AT THIS TIME.
--- NOTE | 2019-04-01 19:24 | NUR ---
Patients daughter arrived. she stated she never agreed to take patient to board and care. she is taking the patient home today and will visit the board and care on thursday, she stated she told Karen the social media editor that. I explained to her it must have been a miscommunication. i called madison, test case developer, karen unable to answer call at this time. madison said ok to d/c patient home and will follow up. patients daughter said she will go to the board and care on thursday, household coordinator is aware and said patient may go home and told the daughter to take the patient to the board and care on thursday, daughter agreed.
[2019-04-01] MEDS: MECLIZINE 25 MG TAB PO SCH (20:12)
[2019-04-01] MEDS: SIMVASTATIN 20 MG TAB PO SCH (20:12)
[2019-04-01] MEDS ORDERED: traZODone 50 MG TAB PO SCH (21:00)
== END 2019-04-01 20:20 | disposition home or self-care (01) | DRG 757 ==
LOC: MED 12:45 → MTU 16:57
PROVIDERS: ADMIT Internal Medicine Pulmonary Disease; ATTEND Internal Medicine Pulmonary Disease
DX: F03.90 Unspecified dementia, unspecified severity, without behavioral disturbance, psychotic disturbance, mood disturbance, and anxiety (principal); F20.9 Schizophrenia, unspecified; I10 Essential (primary) hypertension; J45.909 Unspecified asthma, uncomplicated
CPT/HCPCS: 36415; 80053; 80305; 85025; 87081; 93005; 96372; 99285; G0480; G0482; J1200; J1630; J2060; J2270; J8597